=== PATIENT | male | born 1945 | race African-American/Black ===

== ENCOUNTER 2019-12-24 09:15 | Emergency (ER) | payer OTHER ==
[2019-12-24 11:44] LABS: ABSOLUTE LYMPHOCYTES (AUTO) 1.1 10^3/uL (0.5-4.7); ABSOLUTE MONOCYTES (AUTO) 0.7 10^3/uL (0.1-1.4); ABSOLUTE NEUT (AUTO) 4.4 10^3/uL (1.7-8.2); BASOPHILS % (AUTO) 0.6 % (0-2); EOSINOPHILS % (AUTO) 0.1 % (0-6); HEMATOCRIT 40.2 % (37.9-51.0); HEMOGLOBIN 13.3 g/dL (13.5-17.0); LYMPHOCYTES % (AUTO) 17.2 % (13-45); MEAN CORPUSCULAR HEMOGLOBIN 27.2 pg (27.0-33.4); MEAN CORPUSCULAR VOLUME 82 fl (80-97); MONOCYTES % (AUTO) 11.4 % (3-13); PLATELET COUNT 156 10^3/uL (150-450); RED BLOOD COUNT 4.87 10^6/uL (4.35-5.55); RED CELL DISTRIBUTION WIDTH 13.7 % (11.5-14.0); SEGMENTED NEUTROPHILS % (AUTO) 70.7 % (42-78); TOTAL CELLS COUNTED % (AUTO) 100 %; WHITE BLOOD COUNT 6.3 10^3/uL (4.0-10.5)
--- NOTE | 2019-12-24 11:50 | RADIOLOGY REPORT (SQ) ---
EXAM DESCRIPTION: CHEST SINGLE VIEW IMAGES COMPLETED DATE/TIME: 12/24/2019 11:22 am REASON FOR STUDY: cough sob COMPARISON: None. EXAM PARAMETERS: NUMBER OF VIEWS: One view. TECHNIQUE: Single frontal radiographic view of the chest acquired. RADIATION DOSE: NA LIMITATIONS: None. FINDINGS: LUNGS AND PLEURA: No opacities, masses or pneumothorax. No pleural effusion. MEDIASTINUM AND HILAR STRUCTURES: No masses. Contour normal. HEART AND VASCULAR STRUCTURES: Heart normal in size. Normal vasculature. BONES: No acute findings. HARDWARE: None in the chest. OTHER: No other significant finding. IMPRESSION: NO ACUTE RADIOGRAPHIC FINDING IN THE CHEST. TECHNICAL DOCUMENTATION: JOB ID: [id number] 2010 [employer]- All Rights Reserved Reading location - IP/workstation name: [email or web address]
[2019-12-24 12:03] LABS: ALBUMIN 4.6 g/dL (3.5-5.0); ALKALINE PHOSPHATASE 77 U/L (38-126); ANION GAP 12 (5-19); ASPARTATE AMINO TRANSFERASE 41 U/L (17-59); BILIRUBIN,DIRECT 0.1 mg/dL (0.0-0.4); BILIRUBIN,TOTAL 0.6 mg/dL (0.2-1.3); BLOOD UREA NITROGEN 21 mg/dL (7-20); CALCIUM 9.3 mg/dL (8.4-10.2); CARBON DIOXIDE 28 mmol/L (22-30); CHLORIDE 101 mmol/L (98-107); GLUCOSE 105 mg/dL (75-110); POTASSIUM 4.6 mmol/L (3.6-5.0); TOTAL PROTEIN 8.5 g/dL (6.3-8.2)
[2019-12-24 12:14] LABS: NT PRO BNP 139 pg/mL (<125)
[2019-12-24 12:16] LABS: TROPONIN I < 0.012 ng/mL
--- NOTE | 2019-12-24 13:26 | ER Document Report ---
ED General - General Chief Complaint: Shortness Of Breath Stated Complaint: COUGH,SHORTNESS OF BREATH Time Seen by Provider: 12/24/19 10:04 Mode of Arrival: Ambulatory Information source: Patient TRAVEL OUTSIDE OF THE [place] IN LAST 30 DAYS: No - HPI Notes: Patient presents with complaints of shortness of breath and cough. He states his cough is been mainly nonproductive. He states that shortness of breath is worse with exertion and better with rest. There is no significant radiation of the symptom. It is moderate in intensity and intermittent. He denies any pain. He states he is had no fever sweats or chills. He states he has had no known exposure to the COVID virus. He denies any history of COPD or CHF. He states he does take a blood pressure pill. - Related Data Allergies/Adverse Reactions: No Known Allergies Allergy (Unverified 05/19/14 20:56) Past Medical History - General Information source: Patient - Social History Smoking Status: Former Smoker Frequency of alcohol use: None Drug Abuse: None Family History: Reviewed & Not Pertinent - Past Medical History Cardiac Medical History: Reports: Hx Hypercholesterolemia, Hx Hypertension - Immunizations Hx Diphtheria, Pertussis, Tetanus Vaccination: Yes Review of Systems - Review of Systems Constitutional: denies: Chills, Fever Cardiovascular: denies: Chest pain, Palpitations Respiratory: Cough, Short of breath -: Yes All other systems reviewed and negative Physical Exam - Vital signs Vitals: Resp BP Pulse Ox 20 187/98 H 96 12/24/19 09:20 12/24/19 09:20 12/24/19 09:20 Interpretation: Hypertensive - Patient states he has not taken his blood pressure pill in 2 to 3 days. - General General appearance: Appears well, Alert - HEENT Head: Normocephalic, Atraumatic Eyes: Normal Pupils: PERRL - Respiratory Respiratory status: No respiratory distress Chest status: Nontender Breath sounds: Normal Chest palpation: Normal - Cardiovascular Rhythm: Regular Heart sounds: Normal auscultation Murmur: No - Abdominal Inspection: Normal Distension: No distension Bowel sounds: Normal Tenderness: Nontender Organomegaly: No organomegaly - Back Back: Normal, Nontender - Extremities General upper extremity: Normal inspection, Nontender, Normal color, Normal ROM, Normal temperature General lower extremity: Normal inspection, Nontender, Normal color, Normal ROM, Normal temperature, Normal weight bearing. No: Saw's sign - Neurological Neuro grossly intact: Yes Cognition: Normal Orientation: AAOx4 [place] Coma Scale Eye Opening: Spontaneous [place] Coma Scale Verbal: Oriented [place]esar Coma Scale Motor: Obeys Commands [place] Coma Scale Total: 15 Speech: Normal Motor strength normal: LUE, RUE, LLE, RLE Sensory: Normal - Psychological Associated symptoms: Normal affect, Normal mood - Skin Skin Temperature: Warm Skin Moisture: Dry Skin Color: Normal Course - Re-evaluation Re-evalutation: 12/24/19 13:22 Patient presents with shortness of breath. Chest x-ray is unremarkable. EKG shows no ischemic changes. His BNP is normal and there is no evidence of pulmonary edema or congestive heart failure. He has no significant elevated white blood cell count or fever. His vitals are stable. Patient refuses the COVID test. He states he does not go out of the house and has not been exposed to anybody with it. He does understand that there will could be a missed diagnosis of COVID by refusing this. He states he understands and if he gets sicker he will return. At this time with patient's history of some shortness of breath and a productive cough. I want to discharge the patient home on antibiotics and have him follow-up with his family physician. - Vital Signs Vital signs: Temp Pulse Resp BP Pulse Ox 97.8 F 80 19 187/103 H 99 12/24/19 09:23 12/24/19 09:23 12/24/19 12:01 12/24/19 12:00 12/24/19 12:01 - Laboratory Result Diagrams: 12/24/19 11:07 12/24/19 11:07 Laboratory results interpreted by me: 12/24/19 12/24/19 12/24/19 11:07 11:07 11:07 Hgb 13.3 L BUN 21 H NT-Pro-B Natriuret Pep 139 H Total Protein 8.5 H - Diagnostic Test Radiology reviewed: Image reviewed, Reports reviewed - EKG Interpretation by Me EKG shows normal: Sinus rhythm Rate: Normal - 77 Rhythm: NSR [place]/QRS: Left axis deviation. No: Right axis deviation Discharge - Discharge Clinical Impression: URI (upper respiratory infection) Qualifiers: URI type: unspecified URI Qualified Code(s): J06.9 - Acute upper respiratory infection, unspecified Condition: Stable Disposition: HOME, SELF-CARE Instructions: Upper Respiratory Illness ([facility]) Additional Instructions: Please call your family doctor as soon as possible to arrange follow up Prescriptions: Cefdinir 300 mg PO BID 7 Days #14 capsule
[2019-12-24 13:43] LABS: VENOUS BLOOD BASE EXCESS -0.7 mmol/L; VENOUS BLOOD HCO3 27.3 mmol/L (20-32); VENOUS BLOOD PCO2 59.2 mmHg (35-63); VENOUS BLOOD PH 7.28 (7.30-7.42)
[2019-12-24 13:47] VITALS: BP 187/98
--- NOTE | 2019-12-24 18:40 | EKG REPORT ---
SEVERITY:- OTHERWISE NORMAL ECG - SINUS RHYTHM LEFT AXIS DEVIATION : Confirmed by: Noman Morris 24-Dec-2019 18:40:07
== END 2019-12-24 14:05 | disposition home or self-care (01) ==
LOC: ER 09:15
DX: J06.9 Acute upper respiratory infection, unspecified (principal); R05 Cough; R06.02 Shortness of breath; I10 Essential (primary) hypertension; Z87.891 Personal history of nicotine dependence
CPT/HCPCS: 36415; 71045; 80053; 82803; 83605; 83880; 84484; 85025; 87040; 93005; 93010; 99285

== ENCOUNTER 2019-12-24 20:31 | Inpatient (IN) | payer OTHER ==
[2019-12-24] MEDS ORDERED: METHYLPREDNISOLONE INJ 40 MG/1 ML SDV IV ONE (21:00)
--- NOTE | 2019-12-24 21:05 | ER Document Report ---
Entered by JUAN PABLO CROW SCRIBE 12/24/192054 Acting as scribe for:SHAY ASH, DO ED General - General Stated Complaint: SHORTNESS OF BREATH Time Seen by Provider: 12/24/19 20:49 Mode of Arrival: Medic Information source: Patient Notes: This 74 year old male patient brought in by EMS from home presents to the ED today with complaints of shortness of breath and mild, nonproductive cough for the past x3 days. Patient was seen here earlier, diagnosed with a URI and prescribed Cefdinir. He refused a COVID test at that time, stating that he has not travelled recently or had any exposure to COVID. He states that he couldn't breathe when he got home, so he decided to come back. He notes that his work of breathing is better with O2. Denies fever. TRAVEL OUTSIDE OF THE [place] IN LAST 30 DAYS: No - Related Data Allergies/Adverse Reactions: No Known Allergies Allergy (Verified 12/24/19 20:54) Past Medical History - General Information source: [facility] Records - Social History Smoking Status: Unknown if Ever Smoked Smoking Education Provided: No Family History: Reviewed & Not Pertinent Patient has suicidal ideation: No Patient has homicidal ideation: No - Past Medical History Cardiac Medical History: Reports: Hx Hypercholesterolemia, Hx Hypertension - Immunizations Hx Diphtheria, Pertussis, Tetanus Vaccination: Yes Review of Systems - Review of Systems Constitutional: See HPI. denies: Fever EENT: No symptoms reported Cardiovascular: No symptoms reported Respiratory: See HPI, Cough, Short of breath Gastrointestinal: No symptoms reported Genitourinary: No symptoms reported Male Genitourinary: No symptoms reported Musculoskeletal: See HPI. denies: Muscle pain Skin: No symptoms reported Hematologic/Lymphatic: No symptoms reported Neurological/Psychological: No symptoms reported -: Yes All other systems reviewed and negative Physical Exam - Vital signs Vitals: Temp 99.9 F 12/24/19 20:31 - General General appearance: Alert, Other - Skinny and frail in appearance - HEENT Head: Normocephalic, Atraumatic Eyes: Normal Extraocular movements intact: Yes Pupils: PERRL - Respiratory Respiratory status: No respiratory distress Chest status: Nontender Breath sounds: Decreased air movement - bilaterally Chest palpation: Normal - Cardiovascular Rhythm: Regular Heart sounds: Normal auscultation Murmur: No Friction rub: No Gallop: None auscultated - Abdominal Inspection: Normal Distension: No distension Bowel sounds: Normal Tenderness: Nontender - Abdomen soft Organomegaly: No organomegaly - Back Back: Normal, Nontender - Extremities General upper extremity: Normal inspection General lower extremity: Normal inspection. No: Edema - Neurological Neuro grossly intact: Yes Cognition: Normal Orientation: AAOx4 [place] Coma Scale Eye Opening: Spontaneous [place] Coma Scale Verbal: Oriented [place] Coma Scale Motor: Obeys Commands Cesar Coma Scale Total: 15 Speech: Normal Motor strength normal: LUE, RUE, LLE, RLE Sensory: Normal - Psychological Associated symptoms: Normal affect, Normal mood - Skin Skin Temperature: Warm Skin Moisture: Dry Skin Color: Normal Course - Re-evaluation Re-evalutation: 12/24/19 23:26 MDM 74 year old male with CAP. Low grade fever here. CTA shows the pneumonia which was not visible on cxr. He has not tolerated the outpt attempt at cefdinir and I have spoken with Dr. Adkins and he has graciously agreed to see and evaluate for admission. - Vital Signs Vital signs: Temp Pulse Resp BP Pulse Ox 99.9 F 17 155/77 H 97 12/24/19 20:31 12/24/19 22:01 12/24/19 22:01 12/24/19 22:01 - Diagnostic Test Radiology reviewed: Image reviewed, Reports reviewed - EKG Interpretation by Me EKG shows normal: Sinus rhythm - NSR Left [place] [address] elevation or depression my interpretation Discharge - Discharge Clinical Impression: CAP (community acquired pneumonia) Qualifiers: Laterality: right Lung location: lower lobe of lung Qualified Code(s): J18.9 - Pneumonia, unspecified organism COPD (chronic obstructive pulmonary disease) Qualifiers: COPD type: unspecified COPD Qualified Code(s): J44.9 - Chronic obstructive pulmonary disease, unspecified Condition: Stable Disposition: ADMITTED OBSERVATION Admitting Provider: Jed (Hospitalist) Unit Admitted: Medical Floor I personally performed the services described in the documentation, reviewed and edited the documentation which was dictated to the scribe in my presence, and it accurately records my words and actions.
--- NOTE | 2019-12-24 22:28 | RADIOLOGY REPORT (SQ) ---
EXAM DESCRIPTION: CT CHEST ANGIOGRAPHY WITHOUT THEN WITH IV CONTRAST COMPLETED DATE/TME: 12/24/2019 20:58 CLINICAL HISTORY: 74 years Male sob COMPARISON: 12/24/2019 chest x-ray. TECHNIQUE: Contiguous axial images were obtained through the chest during the infusion of IV contrast. Reformatted images obtained. MIP reformatted images obtained. This exam was performed according to our department optimization program which includes automated exposure control, adjustment of the mA and/or kv according to patient size and/or use of iterative reconstruction technique. FINDINGS: Emphysematous change particularly toward the apices. There is consolidation in the right lower lobe consistent with pneumonia. Left lung appears clear. No pneumothorax. Elongated aorta without dissection or rupture. Scattered small lymph nodes in the malorie. Coronary calcification. Enhancement of the pulmonary arteries is suboptimal with Hounsfield units in the main pulmonary artery 117 HU. No definite embolus is noted. IMPRESSION: Suboptimal bolus of contrast for evaluation of pulmonary embolus. No evidence of embolus is noted No evidence of aortic dissection Infiltrate in the posterior aspect of the right lower lobe concerning for pneumonia or aspiration Emphysema
[2019-12-24] MEDS ORDERED: AMPICILLIN SOD/SULBACTAM 3 GM VIAL IV ONE (23:05)
[2019-12-25] MEDS ORDERED: GUAIFENESIN SYRP 200 MG/10 ML UDC PO PRN (00:57)
[2019-12-25] MEDS ORDERED: ACETAMINOPHEN 325 MG TABLET PO PRN (00:57)
[2019-12-25] MEDS ORDERED: LEVALBUTEROL HCL NEB 0.63 MG/3 ML AMPUL NEB PRN (00:57)
[2019-12-25] MEDS ORDERED: MELATONIN 5 MG TABLET PO PRN (01:01)
[2019-12-25] MEDS ORDERED: LORAZEPAM INJ 2 MG/1 ML VIAL IV PRN (01:01)
[2019-12-25] MEDS ORDERED: MAGNESIUM HYDROXIDE SUSP 30 ML UDCUP PO PRN (01:01)
[2019-12-25] MEDS ORDERED: MAG HYDROX/AL HYDROX/SIMETH SUSP 30 ML UDCUP PO PRN (01:01)
[2019-12-25] MEDS ORDERED: MORPHINE SULFATE 10 MG/ML INJ IV PRN ×4 (01:01→01:19)
[2019-12-25] MEDS ORDERED: HYDRALAZINE HCL INJ/PF 20 MG/1 ML SDV IV PRN (01:01)
[2019-12-25] MEDS ORDERED: NICOTINE 21 MG/24 HR PATCH.TD24 TD PRN (01:04)
[2019-12-25] MEDS ORDERED: METOPROLOL TARTRATE PF/INJ 5 MG/5 ML SDV IV PRN (01:04)
[2019-12-25] MEDS ORDERED: HEPARIN SOD (PORCINE) 5,000 UNIT/ML 1 ML VIAL SUBCUT SCH (06:00)
--- NOTE | 2019-12-25 06:48 | PDOC H&P ---
History of Present Illness Admission Date/PCP: 12/24/2019 23:29 [place] [facility] Patient complains of: Dyspnea History of Present Illness: SIENNA DOSS is a 74 year old male who represented to the emergency room 2 hours after his previous emergency room visit of the day, with a 3-day history of dyspnea. He admits progressively worsening dyspnea becoming severe after leaving the emergency room earlier today. His dyspnea is accompanied by orthopnea and is associated with a nonproductive cough. His dyspnea is worsened with exertion and somewhat improved with rest and supplemental oxygen. He denies other associated or accompanying signs and symptoms. He denies prior similar episodes. He has not identified any additional aggravating or ameliorating factors for his dyspnea. In the emergency room he was found to have a right lower lobe pneumonia on CT scan of the chest. IV antibiotics were initiated with Unasyn. COVID-19 testing was performed with results pending. Patient was subsequently admitted to the hospital for further evaluation and treatment. Past Medical History Cardiac Medical History: Reports: Hyperlipidema, Hypertension Denies: Atrial Fibrillation, Congestive Heart Failure, Coronary Artery Disease, DVT, Myocardial Infarction, Peripheral Vascular Disease, Pulmonary Embolism Pulmonary Medical History: Denies: Asthma, Chronic Obstructive Pulmonary Disease (COPD), Respiratory Failure EENT Medical History: Denies: Cataracts, Ears - Hearing aids Neurological Medical History: Denies: Hemorrhagic CVA, Ischemic CVA, Seizures Renal/ Medical History: Denies: Chronic Kidney Disease, Nephrolithiasis Malignancy Medical History: Reports: None GI Medical History: Denies: Cirrhosis, Hepatitis, Peptic Ulcer Disease Musculoskeltal Medical History: Denies: Arthritis, Gout Skin Medical History: Denies: Eczema, Psoriasis Psychiatric Medical History: Reports: Tobacco Dependency Denies: Alcohol Dependency, Substance Abuse Traumatic Medical History: Reports: None Hematology: Denies: Anemia, Bleeding Tendencies Infectious Medical History: Reports: None Past Surgical History Past Surgical History: Reports: None Social History Information Source: Patient Lives with: Family Smoking Status: Former Smoker Electronic Cigarette use?: No Frequency of Alcohol Use: None Hx Recreational Drug Use: No Drugs: None Hx Prescription Drug Abuse: No - Advance Directive Resuscitation Status: Full Code Surrogate healthcare decision maker:: Ashley Miguelina Family History Family History: Hypertension. denies: CAD, DM, Malignancy Parental Family History Reviewed: Yes Children Family History Reviewed: No Sibling(s) Family History Reviewed.: Yes Medication/Allergy Home Medications: Cephalexin Monohydrate [Keflex 500 mg Capsule] 500 mg PO QID #40 capsule 05/08/14 Sulfamethoxazole/Trimethoprim [Bactrim Ds Tablet] 2 each PO BID #40 tablet 05/08/14 Cefdinir 300 mg PO BID 7 Days #14 capsule 12/24/19 Allergies/Adverse Reactions: No Known Allergies Allergy (Verified 12/24/19 20:54) Review of Systems Constitutional: ABSENT: chills, fever(s) Eyes: ABSENT: visual disturbances, other - Eye pain Ears: ABSENT: hearing changes, other - Ear pain Nose, Mouth, and Throat: ABSENT: headache(s), sore throat Cardiovascular: PRESENT: as per HPI, dyspnea on exertion, orthropnea. ABSENT: chest pain, edema, palpitations Respiratory: PRESENT: as per HPI, cough, dyspnea. ABSENT: hemoptysis, sputum Gastrointestinal: ABSENT: abdominal pain, constipation, diarrhea, nausea, vomiting Genitourinary: ABSENT: dysuria, hematuria Musculoskeletal: ABSENT: back pain, joint swelling Integumentary: ABSENT: pruritus, rash Neurological: ABSENT: confusion, convulsions, focal weakness, memory loss, syncope Psychiatric: ABSENT: anxiety, depression Endocrine: ABSENT: cold intolerance, heat intolerance Hematologic/Lymphatic: ABSENT: easy bleeding, easy bruising Allergic/Immunologic: ABSENT: seasonal rhinorrhea Physical Exam Vital Signs: Temp Pulse Resp BP Pulse Ox 99.9 F 17 155/77 H 97 12/24/19 20:31 12/24/19 22:01 12/24/19 22:01 12/24/19 22:01 Intake & Output 12/22/19 12/23/19 12/24/19 23:59 23:59 23:59 Weight 63.503 kg General appearance: PRESENT: no acute distress, cooperative Head exam: PRESENT: atraumatic, normocephalic Eye exam: PRESENT: conjunctiva pink. ABSENT: conjunctival injection, scleral icterus Ear exam: PRESENT: normal external ear exam. ABSENT: bleeding, drainage Mouth exam: PRESENT: dry mucosa, neck supple Neck exam: ABSENT: thyromegaly, tracheal deviation Respiratory exam: PRESENT: prolonged expiratory phas - Mildly prolonged expi ratory phase throughout all hi, rales - Coarse rales at the right base, symmetrical Cardiovascular exam: PRESENT: RRR. ABSENT: clicks, gallop, rubs Pulses: PRESENT: normal radial pulses, normal dorsalis pedis pul Vascular exam: PRESENT: normal capillary refill. ABSENT: pallor GI/Abdominal exam: PRESENT: normal bowel sounds, soft. ABSENT: tenderness Rectal exam: PRESENT: deferred Extremities exam: ABSENT: joint swelling, pedal edema Musculoskeletal exam: ABSENT: deformity, dislocation Neurological exam: PRESENT: alert, oriented to person, oriented to place, oriented to time, oriented to situation, CN II-XII grossly intact. ABSENT: motor sensory deficit Psychiatric exam: PRESENT: appropriate affect, normal mood Skin exam: PRESENT: dry, intact, warm. ABSENT: jaundice, rash, urticaria Results Laboratory Results: 12/24/19 21:42 Troponin I 0.029 Impressions: Chest/Abdomen CTA 12/24/19 20:58 IMPRESSION: Suboptimal bolus of contrast for evaluation of pulmonary embolus. No evidence of embolus is noted No evidence of aortic dissection Infiltrate in the posterior aspect of the right lower lobe concerning for pneumonia or aspiration Emphysema Assessment and Plan - Diagnosis (1) Community acquired pneumonia of right lower lobe of lung Is this a current diagnosis for this admission?: Yes (2) COPD (chronic obstructive pulmonary disease) Qualifiers: COPD type: unspecified COPD Qualified Code(s): J44.9 - Chronic obstructive pulmonary disease, unspecified Is this a current diagnosis for this admission?: Yes (3) Hypertension Qualifiers: Hypertension type: essential hypertension Qualified Code(s): I10 - Essential (primary) hypertension Is this a current diagnosis for this admission?: Yes (4) Hyperlipidemia Qualifiers: Hyperlipidemia type: unspecified Qualified Code(s): E78.5 - Hyperlipidemia, unspecified Is this a current diagnosis for this admission?: Yes - Plan Summary Summary: Patient will be admitted to medical floor he will receive routine supportive and symptomatic cares. He will be treated with aggressive pulmonary toilet utilizing Xopenex, Atrovent, Pulmicort and Mucomyst. He will receive supplemental oxygen via the oxygen protocol in order to maintain an adequate O2 sat. He will receive IV antibiotics utilizing Rocephin and azithromycin. He will be a patient under investigation until his COVID-19 test results have returned. He will receive morphine sulfate 2 to 4 mg IV every 2 hours as needed for pain. He will receive Ativan 1 mg IV every 4 hours as needed for anxiety or restlessness. 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 He will be treated with a cardiac diet. - Time Time Spent with patient: 15-24 minutes Medications reviewed and adjusted accordingly: Yes Anticipated Discharge Disposition: Home with Home Health Anticipated Discharge Timeframe: Undetermined - Inpatient Certification Based on my medical assessment, after consideration of the patient's comorbidities, presenting symptoms, or acuity I expect that the services needed warrant INPATIENT care.: Yes I certify that my determination is in accordance with my understanding of Medicare's requirements for reasonable and necessary INPATIENT services [42 CFR 412.3e].: Yes Medical Necessity: Failure to Improve With Outpatient Therapy, Need Close Monitoring Due to Risk of Patient Decompensation, Need for Nebulizer Therapy and Monitoring of Response, Need for IV Antibiotics, Risk of Complication if Not Cared For in Hospital
[2019-12-25] MEDS ORDERED: LEVALBUTEROL HCL NEB 1.25 MG/3 ML AMPUL NEB SCH (08:00)
[2019-12-25] MEDS ORDERED: ACETYLCYSTEINE 20% SOLN 800 MG/4 ML VIAL.NEB NEB SCH (08:00)
[2019-12-25] MEDS ORDERED: BUDESONIDE NEB 0.5 MG/2 ML AMPUL NEB SCH (08:00)
[2019-12-25] MEDS ORDERED: IPRATROPIUM BROMIDE 0.02% NEB 0.5 MG/2.5 ML AMPUL NEB SCH (08:00)
--- NOTE | 2019-12-25 08:53 | PDOC DISCHARGE SUMMARY ---
Impression - Admit/DC Date/PCP Admission Date/Primary Care Provider: 12/24/19 23:40 Discharge Date: 12/25/19 - Assessment Summary: Patient will be admitted to medical floor he will receive routine supportive and symptomatic cares. He will be treated with aggressive pulmonary toilet utilizing Xopenex, Atrovent, Pulmicort and Mucomyst. He will receive supplemental oxygen via the oxygen protocol in order to maintain an adequate O2 sat. He will receive IV antibiotics utilizing Rocephin and azithromycin. He will be a patient under investigation until his COVID-19 test results have returned. He will receive morphine sulfate 2 to 4 mg IV every 2 hours as needed for pain. He will receive Ativan 1 mg IV every 4 hours as needed for anxiety or restlessness. He will be continued on his usual home medications for his chronic medical illnesses as soon as his medication list can be verified and reconciled. He will be treated with a cardiac diet. - Additional Information Resuscitation Status: Full Code Discharge Diet: Cardiac Discharge Activity: Balance Activity w/Rest, Slowly Increase Activity [facility]: [facility] [NO [facility]] - Prescriptions: Fluticasone Propion/Salmeterol [Advair HFA 115-21 mcg Inhaler] 2 puff IH BID #1 mdi Azithromycin [Zithromax 250 mg Tablet] 250 mg PO ASDIR PRN #6 tablet PRN Reason: Home Medications: Cephalexin Monohydrate [Keflex 500 mg Capsule] 500 mg PO QID #40 capsule 05/08/14 Sulfamethoxazole/Trimethoprim [Bactrim Ds Tablet] 2 each PO BID #40 tablet 05/08/14 Cefdinir 300 mg PO BID 7 Days #14 capsule 12/24/19 Acetaminophen [Tylenol 325 mg Tablet] 650 mg PO Q4HP PRN tablet 12/25/19 Azithromycin [Zithromax 250 mg Tablet] 250 mg PO ASDIR PRN #6 tablet 12/25/19 Fluticasone Propion/Salmeterol [Advair HFA 115-21 mcg Inhaler] 2 puff IH BID #1 mdi 12/25/19 Guaifenesin [Robitussin Syrup 200 mg/10 ml Ud Cup] 200 mg PO QIDP PRN udc 12/25/19 Nicotine [Nicoderm 21 mg/24 Hr Transderm Patch] 1 each TD DAILYP PRN patch.td24 12/25/19 History of Present Illiness History of Present Illness: SIENNA DOSS is a 74 year old male who represented to the emergency room 2 hours after his previous emergency room visit of the day, with a 3-day history of dyspnea. He admits progressively worsening dyspnea becoming severe after leaving the emergency room earlier today. His dyspnea is accompanied by orthopnea and is associated with a nonproductive cough. His dyspnea is worsened with exertion and somewhat improved with rest and supplemental oxygen. He denies other associated or accompanying signs and symptoms. He denies prior similar episodes. He has not identified any additional aggravating or ameliorating factors for his dyspnea. In the emergency room he was found to have a right lower lobe pneumonia on CT scan of the chest. IV antibiotics were initiated with Unasyn. COVID-19 testing was performed with results pending. Patient was subsequently admitted to the hospital for further evaluation and treatment. Hospital Course Hospital Course: Unremarkable hospital course. The patient reports feeling much better this morning. He is agreeable to return home. Physical Exam Vital Signs: Temp Pulse Resp BP Pulse Ox 99.9 F 21 H 152/86 H 96 12/24/19 20:31 12/25/19 06:01 12/25/19 06:00 12/25/19 06:01 Intake & Output 12/24/19 12/25/19 12/26/19 06:59 06:59 06:59 Weight 63.503 kg General appearance: PRESENT: no acute distress, cooperative, well-developed Head exam: PRESENT: atraumatic, normocephalic Ear exam: PRESENT: normal external ear exam. ABSENT: bleeding, drainage Respiratory exam: PRESENT: clear to auscultation gillian, symmetrical, unlabored. ABSENT: rales, rhonchi, tachypnea, wheezes Cardiovascular exam: PRESENT: RRR, +S1, +S2 GI/Abdominal exam: PRESENT: normal bowel sounds, soft. ABSENT: distended, guarding, tenderness Rectal exam: PRESENT: deferred, tenderness Neurological exam: PRESENT: alert, awake, oriented to person, oriented to place, oriented to time, oriented to situation. ABSENT: altered, CN II-XII grossly intact - Significant vision loss Psychiatric exam: PRESENT: appropriate affect. ABSENT: agitated, anxious Focused psych exam: ABSENT: delusional, paranoid, restlessness Skin exam: PRESENT: dry, normal color, warm. ABSENT: rash Results Laboratory Results: Troponin I 0.029 ng/mL 12/24/19 21:42 12/24/19 21:42 Troponin I 0.029 Impressions: Chest/Abdomen CTA 12/24/19 20:58 IMPRESSION: Suboptimal bolus of contrast for evaluation of pulmonary embolus. No evidence of embolus is noted No evidence of aortic dissection Infiltrate in the posterior aspect of the right lower lobe concerning for pneumonia or aspiration Emphysema Plan Health Concerns: Community-acquired pneumonia. Plan of Treatment: The patient will complete antibiotic therapy as an outpatient. He is oxygenating well on room air. I have also prescribed an inhaler to use during his recovery and possibly thereafter. This will be determined by his follow-up at the [facility]. The health department will contact him with results of his COVID testing Goals: Resolution of infection Time Spent: Greater than 30 Minutes Stroke Is this a Stroke Patient?: No Acute Heart Failure - Is this a Heart Failure Patient?: No
[2019-12-25 09:14] VITALS: BP 145/84
[2019-12-25] MEDS ORDERED: FAMOTIDINE 20 MG TABLET PO SCH (10:00)
[2019-12-25] MEDS ORDERED: AZITHROMYCIN 500 MG in DEXTROSE 5%-WATER 250 ML IV SCH (10:00)
[2019-12-25] MEDS ORDERED: DEXAMETHASONE SOD PHOSPHATE INJ 4 MG/1 ML VIAL IV SCH (10:00)
[2019-12-25] MEDS ORDERED: CEFTRIAXONE 1 GM/D5W RTU 1 GM/50 ML RTUPB IV SCH (10:00)
--- NOTE | 2019-12-25 10:11 | EKG REPORT ---
SEVERITY:- OTHERWISE NORMAL ECG - SINUS RHYTHM LEFT AXIS DEVIATION : Confirmed by: Noman Morris 25-Dec-2019 10:11:13
== END 2019-12-25 08:43 | disposition home or self-care (01) | DRG 177 ==
LOC: ER 20:31 → EH 23:40 → OBSVTOIN 12-25 00:57
PROVIDERS: ADMIT Emergency Medicine; ATTEND Hospitalist
DX: U07.1 COVID-19 (principal); J18.9 Pneumonia, unspecified organism; J44.0 Chronic obstructive pulmonary disease with (acute) lower respiratory infection; E78.5 Hyperlipidemia, unspecified; I10 Essential (primary) hypertension; Z87.891 Personal history of nicotine dependence; Z82.49 Family history of ischemic heart disease and other diseases of the circulatory system
CPT/HCPCS: 36415; 36600; 71275; 84484; 87040; 87635; 93005; 93010; 99285; C9803; J0295; J1644; J3490

== ENCOUNTER 2020-03-29 20:21 | Emergency (ER) | payer OTHER ==
[2020-03-29 23:00] LABS: ABSOLUTE BASOPHILS # (AUTO) 0.1 10^3/uL (0.0-0.2); ABSOLUTE LYMPHOCYTES (AUTO) 1.5 10^3/uL (0.5-4.7); ABSOLUTE MONOCYTES (AUTO) 0.4 10^3/uL (0.1-1.4); ABSOLUTE NEUT (AUTO) 5.9 10^3/uL (1.7-8.2); BASOPHILS % (AUTO) 0.7 % (0-2); EOSINOPHILS % (AUTO) 0.5 % (0-6); HEMATOCRIT 39.5 % (37.9-51.0); HEMOGLOBIN 13.1 g/dL (13.5-17.0); LYMPHOCYTES % (AUTO) 18.7 % (13-45); MEAN CORPUSCULAR HEMOGLOBIN 27.5 pg (27.0-33.4); MEAN CORPUSCULAR HGB CONC 33.2 g/dL (32.0-36.0); MEAN CORPUSCULAR VOLUME 83 fl (80-97); MONOCYTES % (AUTO) 5.3 % (3-13); PLATELET COUNT 206 10^3/uL (150-450); RED BLOOD COUNT 4.77 10^6/uL (4.35-5.55); RED CELL DISTRIBUTION WIDTH 14.3 % (11.5-14.0); SEGMENTED NEUTROPHILS % (AUTO) 74.8 % (42-78); TOTAL CELLS COUNTED % (AUTO) 100 %; WHITE BLOOD COUNT 7.8 10^3/uL (4.0-10.5)
[2020-03-29 23:05] LABS: ALBUMIN 5.2 g/dL (3.5-5.0); ALKALINE PHOSPHATASE 95 U/L (38-126); ANION GAP 15 (5-19); ASPARTATE AMINO TRANSFERASE 38 U/L (17-59); BILIRUBIN,DIRECT 0.3 mg/dL (0.0-0.4); BILIRUBIN,TOTAL 0.7 mg/dL (0.2-1.3); BLOOD UREA NITROGEN 19 mg/dL (7-20); CALCIUM 10.1 mg/dL (8.4-10.2); CARBON DIOXIDE 29 mmol/L (22-30); CHLORIDE 97 mmol/L (98-107); GLUCOSE 131 mg/dL (75-110); POTASSIUM 4.3 mmol/L (3.6-5.0); TOTAL PROTEIN 9.5 g/dL (6.3-8.2)
[2020-03-29 23:13] LABS: APPEARANCE,URINE CLEAR; BILIRUBIN,URINE NEGATIVE (NEGATIVE); COLOR,URINE STRAW; GLUCOSE, URINE NEGATIVE (NEGATIVE); KETONES,URINE NEGATIVE (NEGATIVE); LEUKOCYTE ESTERASE,URINE TRACE (NEGATIVE); NITRITE,URINE NEGATIVE (NEGATIVE); PROTEIN,URINE 100 mg/dL (NEGATIVE); URINE SPECIFIC GRAVITY 1.013; UROBILINOGEN,URINE NEGATIVE mg/dL (<2.0)
[2020-03-29 23:17] LABS: CREATINE KINASE MB 2.31 ng/mL (<4.55); NT PRO BNP 167 pg/mL (<125)
[2020-03-29 23:19] LABS: TROPONIN I < 0.012 ng/mL
[2020-03-29] MEDS ORDERED: METHYLPREDNISOLONE INJ 125 MG/2 ML SDV IV ONE (23:22)
[2020-03-29] MEDS ORDERED: IPRATROPIUM/ALBUTEROL 0.5-2.5 MG/3 ML AMPUL NEB ONE (23:22)
--- NOTE | 2020-03-29 23:22 | RADIOLOGY REPORT (SQ) ---
EXAM DESCRIPTION: CHEST SINGLE VIEW CLINICAL HISTORY: 75 years Male, sob COMPARISON: Single view of the chest 12/24/2019 FINDINGS: Lungs: Lungs are hyperinflated with flattening of the hemidiaphragms and increased AP diameter. Overall there is diffuse lucency of the lung parenchyma consistent with emphysema. No pneumothorax. No focal consolidation. Mediastinum: Cardiac and mediastinal silhouette are stable Bones: Osseous structures are normal. IMPRESSION: Hyperinflation with diffuse lucency of the lungs consistent with emphysema. No acute process.
--- NOTE | 2020-03-29 23:28 | ER Document Report ---
ED General - General Chief Complaint: Shortness Of Breath Stated Complaint: DIFFICULTY BREATHING Time Seen by Provider: 03/29/20 23:07 Primary Care Provider: [facility] [Primary Care Provider] - Follow up as needed TRAVEL OUTSIDE OF THE U[place] IN LAST 30 DAYS: No - HPI Notes: Patient is a 75-year-old male who presents to the emergency department for evaluation of difficulty breathing. He states that this is actually been going on for several years but has been worse over the last day. He denies any pain. No fevers or chills. No nausea or vomiting. No anosmia. He is not coughing. He denies any chest tightness. He states he has been eating and drinking normally, peeing and moving his bowels normally. He just became more short of breath while walking today. He states that he was not really doing anything strenuous. Denies any pain of any sort. He has a history of high blood pressure glaucoma, has been taking his medications as prescribed. - Related Data Allergies/Adverse Reactions: No Known Allergies Allergy (Verified 12/24/19 20:54) Home Medications: Antihypertensive, glaucoma medications Past Medical History - General Information source: Patient - Social History Smoking Status: Former Smoker - [id number] smoker, quit in the Chew tobacco use (# tins/day): Yes Frequency of alcohol use: None Drug Abuse: None Family History: Hypertension. denies: CAD, DM, Malignancy - Past Medical History Cardiac Medical History: Reports: Hx Hypercholesterolemia, Hx Hypertension Denies: Hx Atrial Fibrillation, Hx Congestive Heart Failure, Hx Coronary Artery Disease, Hx DVT, Hx Heart Attack, Hx Peripheral Vascular Disease, Hx Pulmonary Embolism Pulmonary Medical History: Denies: Hx Asthma, Hx COPD, Hx Respiratory Failure EENT Medical History: Reports: Eyes - Glaucoma, retinal artery occlusion Neurological Medical History: Denies: Hx Seizures GI Medical History: Denies: Hx Cirrhosis, Hx Hepatitis Musculoskeletal Medical History: Denies Hx Arthritis, Denies Hx Gout Skin Medical History: Denies Hx Eczema, Denies Hx Psoriasis Infectious Medical History: Denies: Hx Hepatitis Surgical Hx: Negative - Immunizations Hx Diphtheria, Pertussis, Tetanus Vaccination: Yes Review of Systems - Review of Systems Constitutional: No symptoms reported EENT: No symptoms reported Cardiovascular: No symptoms reported Respiratory: See HPI Gastrointestinal: No symptoms reported Genitourinary: No symptoms reported Musculoskeletal: No symptoms reported Skin: No symptoms reported Neurological/Psychological: No symptoms reported -: Yes All other systems reviewed and negative Physical Exam - Vital signs Vitals: Resp 35 H 03/29/20 20:38 - Notes Notes: There is a very pleasant 75-year-old male who appears her stated age, mild distress. He is mildly tachypneic. Vital signs reviewed, please refer to chart. Head is normocephalic, atraumatic. Pupils equal round, reactive to light. Neck is supple without meningismus. Heart is regular rate and rhythm. Lungs reveal significantly diminished breath sounds. Abdomen is soft, nontender, normoactive bowel sounds throughout. Extremities without cyanosis, clubbing. Posterior calves are nontender. Peripheral pulses are equal. Skin is warm and dry, dyshidrotic. Patient is awake, alert, neurological exam is nonfocal. Course - Re-evaluation Re-evalutation: 03/29/20 23:27 Patient presents to the emergency department for evaluation. He has shortness of breath, has an SPO2 of 90% on room air and is found to be tachypneic. He is improving on oxygen. He has no known history of COPD but does have a history of smoking. He states that shortness of breath of been going on for some time. His lungs show poor air movement at this time. We will treat with steroids, albuterol. His chest x-ray appears to show hyperinflation to my eye, awaiting radiology read. ABG is ordered as well. He is currently stable, we will continue to monitor. 03/30/20 00:43 Patient feeling significantly improved. ABG was unable to be obtained by nursing. I did attempt once with ultrasound. The patient had a muscle spasm and jerked, I aborted the procedure. At that point he was breathing 20 times a minute. He is oxygenating well. He feels significantly improved and would like to go home. I do not see any indication for the ABG at this time. The patient's x-ray is consistent with emphysema. His physical findings are consistent with emphysema. I explained to him that he would need pulmonary function testing, but that was likely his diagnosis. I will send him home with steroids and albuterol inhaler. [facility]. He voiced understanding. We also talked about his elevated blood pressure here. I suspect that that was in part secondary to his difficulty breathing as well as anxiety, and he agrees. We did discuss, however, that uncontrolled blood pressure leads to significant medical comorbidities, and this would need to be addressed as well. He voiced understanding and will be discharged. He is to return to the ED with worsening. - Vital Signs Vital signs: Temp Pulse Resp BP Pulse Ox 97.7 F 30 H 178/99 H 100 03/29/20 21:49 03/30/20 00:22 03/30/20 00:22 03/30/20 00:27 - Laboratory Result Diagrams: 03/29/20 22:05 03/29/20 22:05 Laboratory results interpreted by me: 03/29/20 03/29/20 03/29/20 22:05 22:05 22:05 Hgb 13.1 L RDW 14.3 H Chloride 97 L Glucose 131 H NT-Pro-B Natriuret Pep 167 H Total Protein 9.5 H Albumin 5.2 H Urine Protein Urine Blood Ur Leukocyte Esterase 03/29/20 22:10 Hgb RDW Chloride Glucose NT-Pro-B Natriuret Pep Total Protein Albumin Urine Protein 100 H Urine Blood SMALL H Ur Leukocyte Esterase TRACE H - Diagnostic Test Radiology reviewed: Image reviewed, Reports reviewed Radiology results interpreted by me: 03/30/20 00:44 Chest X-Ray 03/29/20 22:46 IMPRESSION: Hyperinflation with diffuse lucency of the lungs consistent with emphysema. No acute process. Procedures - Additional Procedures ABG Time performed: 00:44 Additional Procedures: ABG Notes: 03/30/20 00:47 Silvano test performed. Left radial artery was visualized with ultrasound. I did attempt to cannulate the artery. The artery was cannulated, but the patient did move, I did lose blood flow. Patient stated he was feeling better so procedure was aborted. No other complications. Discharge - Discharge Clinical Impression: COPD (chronic obstructive pulmonary disease) Qualifiers: COPD type: emphysema Emphysema type: unspecified Qualified Code(s): J43.9 - Emphysema, unspecified Condition: Stable Disposition: HOME, SELF-CARE Instructions: Chronic Obstructive Lung Disease ([facility]) Additional Instructions: Your findings today are most consistent with emphysema. [facility] Please take the steroids and use the albuterol inhaler as directed. Also, your blood pressure is elevated today. Please follow-up with your primary care provider in regards to this. Return to the emergency department with worsening or new concerning symptoms of any sort. Prescriptions: Albuterol Sulfate [Albuterol Sulfate Hfa] 6.7 gm IH Q4HP PRN #1 [id number].[id number] PRN Reason: Prednisone [Deltasone 20 mg Tablet] See Protocol PO DAILY 5 Days #20 tablet Forms: Elevated Blood Pressure [facility] [[facility]] - Follow up as needed
[2020-03-30 01:09] VITALS: BP 210/102
--- NOTE | 2020-03-30 07:31 | EKG REPORT ---
SEVERITY:- ABNORMAL ECG - SINUS TACHYCARDIA LAD, CONSIDER LEFT ANTERIOR FASCICULAR BLOCK : Confirmed by: Roddy Hobbs MD 30-Mar-2020 07:31:23
== END 2020-03-30 01:19 | disposition home or self-care (01) ==
LOC: ER 20:21
DX: J43.9 Emphysema, unspecified (principal); R06.02 Shortness of breath; R06.00 Dyspnea, unspecified; E78.00 Pure hypercholesterolemia, unspecified; I10 Essential (primary) hypertension
CPT/HCPCS: 93005; 94640; 99285; 96374; 36415; 82553; 85025; 80053; 81001; 84484; 83880; 71045; 93010; J2930

== ENCOUNTER 2020-03-30 08:33 | Emergency (ER) | payer OTHER ==
[2020-03-30] MEDS ORDERED: LIDOCAINE 2% URO-JET 5 ML KIT MM ONE (10:10)
--- NOTE | 2020-03-30 10:19 | ER Document Report ---
ED General - General Chief Complaint: Urinary Retention Stated Complaint: urinary retention Time Seen by Provider: 03/30/20 10:08 Primary Care Provider: RODDY LAZARO [Primary Care Provider] - Follow up as needed TRAVEL OUTSIDE OF THE U.S. IN LAST 30 DAYS: No - HPI Notes: 75-year-old male with past medical history for enlarged prostate and hypertension to the emergency department with complaints of urinary retention that began yesterday. He states he last urinated yesterday but since and has not been able to urinate. He states he did not have any pain or see any blood with his urination yesterday. He denies any fevers or chills. He denies any nausea or vomiting. He states that his lower abdomen is very uncomfortable and distended. He has never had a problem like this before. He sees Dr. Eliud PEREYRA for urology. Does not have a history of prostate cancer. He states that he has been trying to drink tea to hydrate himself and promote himself to urinate but has not worked. - Related Data Allergies/Adverse Reactions: No Known Allergies Allergy (Verified 03/30/20 09:49) Home Medications: no change in meds since visit last night Past Medical History - General Information source: Patient - Social History Smoking Status: Former Smoker Chew tobacco use (# tins/day): No Frequency of alcohol use: None Drug Abuse: None Family History: Hypertension. denies: CAD, DM, Malignancy Patient has homicidal ideation: No - Past Medical History Cardiac Medical History: Reports: Hx Hypercholesterolemia, Hx Hypertension Denies: Hx Atrial Fibrillation, Hx Congestive Heart Failure, Hx Coronary Artery Disease, Hx DVT, Hx Heart Attack, Hx Peripheral Vascular Disease, Hx Pulmonary Embolism Pulmonary Medical History: Denies: Hx Asthma, Hx COPD, Hx Respiratory Failure Neurological Medical History: Denies: Hx Seizures GI Medical History: Denies: Hx Cirrhosis, Hx Hepatitis Musculoskeletal Medical History: Denies Hx Arthritis, Denies Hx Gout Skin Medical History: Denies Hx Eczema, Denies Hx Psoriasis Infectious Medical History: Denies: Hx Hepatitis - Immunizations Hx Diphtheria, Pertussis, Tetanus Vaccination: Yes Review of Systems - Review of Systems Constitutional: denies: Chills, Fever EENT: No symptoms reported Cardiovascular: denies: Chest pain, Palpitations, Heart racing, Orthopnea, Dyspnea, Syncope, Dizziness, Lightheaded Respiratory: denies: Cough, Short of breath Gastrointestinal: Abdominal pain. denies: Diarrhea, Nausea, Vomiting Genitourinary: Retention Musculoskeletal: No symptoms reported Skin: No symptoms reported Hematologic/Lymphatic: No symptoms reported Neurological/Psychological: No symptoms reported -: Yes All other systems reviewed and negative Physical Exam - Vital signs Vitals: Temp Pulse Resp BP Pulse Ox 98.0 F 116 H 16 184/90 H 96 03/30/20 08:38 03/30/20 08:38 03/30/20 08:38 03/30/20 08:38 03/30/20 08:38 Interpretation: Normal - General General appearance: Appears well, Alert - HEENT Head: Normocephalic, Atraumatic Eyes: Normal Pupils: PERRL Ears: Normal External canal: Normal Tympanic membrane: Normal Sinus: Normal Nasal: Normal Mouth/Lips: Normal Pharynx: Normal Neck: Normal, Supple. No: Lymphadenopathy - Respiratory Respiratory status: No respiratory distress Chest status: Nontender. No: Accessory muscle use Breath sounds: Normal. No: Rales, Rhonchi, Wheezing Chest palpation: Normal - Cardiovascular Rhythm: Regular Heart sounds: Normal auscultation Murmur: No - Abdominal Inspection: Normal Distension: Other - Mild distention in the suprapubic abdomen with tenderness to palpation over the suprapubic abdomen. Bowel sounds: Normal Tenderness: Tender - Tenderness over the suprapubic abdomen. No: McBurney's point, Spencer's sign, Guarding, Rebound Organomegaly: No organomegaly - Back Back: Normal, Nontender. No: CVA tenderness - Neurological Neuro grossly intact: Yes Cognition: Normal Orientation: AAOx4 Cesar Coma Scale Eye Opening: Spontaneous Cesar Coma Scale Verbal: Oriented [place] Coma Scale Motor: Obeys Commands Cesar Coma Scale Total: 15 Speech: Normal Cranial nerves: Normal Cerebellar coordination: Normal Motor strength normal: LUE, RUE, LLE, RLE Additional motor exam normals: Equal bologna lacer Sensory: Normal - Psychological Associated symptoms: Normal affect, Normal mood - Skin Skin Temperature: Warm Skin Moisture: Dry Skin Color: Normal Course - Re-evaluation Re-evalutation: 03/30/20 11:53 Progress: Rounded on patient he is feeling much better after Pete inserted. Almost 600 cc was drained from the bladder. A little bit of nitrates and white blood cells in his urinalysis. We will culture it and start him on a 3-day course of Cipro. 1 month follow-up with urology. He is concerned that he may not be able to get in with Dr. Kline through the [place] so we will give him a urologist here in [place]. Patient agrees with the plan. Encouraged to return if worse. - Vital Signs Vital signs: Temp Pulse Resp BP Pulse Ox 98.0 F 116 H 16 184/90 H 96 03/30/20 08:38 03/30/20 08:38 03/30/20 08:38 03/30/20 08:38 03/30/20 08:38 03/30/20 12:15 Temp Pulse Resp BP Pulse Ox 98.4 F 95 17 139/73 H 98 03/30/20 12:12 03/30/20 12:12 03/30/20 12:12 03/30/20 12:12 03/30/20 12:12 Intake & Output 03/29/20 03/30/20 03/31/20 06:59 06:59 06:59 Weight 54.6 kg Weight/Height Weight 54.6 kg Height 5 ft 10 in - Laboratory Laboratory results interpreted by me: 03/30/20 11:05 Urine Protein 100 H Urine Blood MODERATE H Urine Nitrite (Reflex) POSITIVE H Urine Urobilinogen 2.0 H Discharge - Discharge Clinical Impression: Urinary retention UTI (urinary tract infection) Qualifiers: Urinary tract infection type: acute cystitis Hematuria presence: without hematuria Qualified Code(s): N30.00 - Acute cystitis without hematuria Condition: Stable Disposition: HOME, SELF-CARE Instructions: Urinary Retention ([facility]), Pete Catheter Care ([facility]), Urinary Tract Infection ([facility]) Additional Instructions: Please follow-up outpatient with urology; call today to make a follow up appointment. He will need to use a Pete until you are seen. You want to be seen by Saturday. Take antibiotics as prescribed. Return if any worsening symptoms. [facility], Urology [address] [place] [address] Prescriptions: Ciprofloxacin HCl [Cipro 500 mg Tablet] 500 mg PO BID #6 tablet [facility] [[facility]] - Follow up in 1 week
[2020-03-30 11:27] LABS: APPEARANCE,URINE CLEAR; BILIRUBIN,URINE NEGATIVE (NEGATIVE); COLOR,URINE AMBER; GLUCOSE, URINE NEGATIVE (NEGATIVE); KETONES,URINE NEGATIVE (NEGATIVE); PROTEIN,URINE 100 mg/dL (NEGATIVE); URINE SPECIFIC GRAVITY 1.016
[2020-03-30 12:13] VITALS: BP 139/73
== END 2020-03-30 12:46 | disposition home or self-care (01) ==
LOC: ER 08:33
DX: N30.00 Acute cystitis without hematuria (principal); R33.9 Retention of urine, unspecified; N40.0 Benign prostatic hyperplasia without lower urinary tract symptoms; R10.9 Unspecified abdominal pain; I10 Essential (primary) hypertension; Z87.891 Personal history of nicotine dependence
CPT/HCPCS: 99283; 51702; 36415; 87086; 81001; J3490

== ENCOUNTER 2020-04-11 16:59 | Emergency (ER) | payer OTHER, MEDICARE ==
[2020-04-11] MEDS ORDERED: PREDNISONE 20 MG TABLET PO ONE (17:34)
--- NOTE | 2020-04-11 17:35 | ER Document Report ---
ED Medical Screen (RME) - General Chief Complaint: Shortness Of Breath Stated Complaint: SHORT OF BREATH Time Seen by Provider: 04/11/20 17:32 Primary Care Provider: RODDY LAZARO [Primary Care Provider] - Follow up as needed Notes: HPI: 75-year-old male with COPD history who is a poor historian presenting for shortness of breath today. Short of breath with exertion not at rest currently. No fever. Reports chronic cough. PHYSICAL EXAMINATION: Lung sounds are clear to auscultation. Not significantly tachycardic. Does not become dyspneic with speaking I have greeted and performed a rapid initial assessment of this patient. A comprehensive ED assessment and evaluation of the patient, analysis of test results and completion of medical decision making process will be conducted by an additional ED providers. TRAVEL OUTSIDE OF THE [place] IN LAST 30 DAYS: No - Related Data Allergies/Adverse Reactions: No Known Allergies Allergy (Verified 03/30/20 09:49) Past Medical History - Past Medical History Cardiac Medical History: Reports: Hx Hypercholesterolemia, Hx Hypertension Denies: Hx Atrial Fibrillation, Hx Congestive Heart Failure, Hx Coronary Artery Disease, Hx DVT, Hx Heart Attack, Hx Peripheral Vascular Disease, Hx Pulmonary Embolism Pulmonary Medical History: Denies: Hx Asthma, Hx COPD, Hx Respiratory Failure Neurological Medical History: Denies: Hx Seizures GI Medical History: Denies: Hx Cirrhosis, Hx Hepatitis Musculoskeltal Medical History: Denies Hx Arthritis, Denies Hx Gout Skin Medical History: Denies Hx Eczema, Denies Hx Psoriasis Infectious Medical History: Denies: Hx Hepatitis - Immunizations Hx Diphtheria, Pertussis, Tetanus Vaccination: Yes Doctor's Discharge - Discharge Referrals: TEJAS,RODDY [Primary Care Provider] - Follow up as needed
[2020-04-11 17:40] VITALS: BP 101/65
--- NOTE | 2020-04-11 19:12 | RADIOLOGY REPORT (SQ) ---
EXAM DESCRIPTION: CHEST SINGLE VIEW IMAGES COMPLETED DATE/TIME: 04/11/2020 6:59 pm REASON FOR STUDY: sob COMPARISON: 03/29/2020 EXAM PARAMETERS: NUMBER OF VIEWS: One view. TECHNIQUE: Single frontal radiographic view of the chest acquired. RADIATION DOSE: NA LIMITATIONS: None. FINDINGS: LUNGS AND PLEURA: The lungs are hyperexpanded. There is no infiltrate, effusion, or mass. There is no pneumothorax. MEDIASTINUM AND HILAR STRUCTURES: No masses. Contour normal. HEART AND VASCULAR STRUCTURES: Heart normal in size. Normal vasculature. BONES: No acute findings. HARDWARE: None in the chest. OTHER: No other significant finding. IMPRESSION: Chronic lung changes with no acute cardiopulmonary finding. TECHNICAL DOCUMENTATION: JOB ID: [id number] [employer]- All Rights Reserved Reading location - IP/workstation name: [email or web address]
[2020-04-11] MEDS ORDERED: NORMAL SALINE 1000 ML 1,000 ML IV PRN (20:02)
[2020-04-11] MEDS ORDERED: CLOPIDOGREL BISULFATE 75 MG TABLET PO ONE (20:02)
[2020-04-11] MEDS ORDERED: ASPIRIN 81 MG TABLET, CHEWABLE PO ONE (20:02)
--- NOTE | 2020-04-11 20:19 | ER Document Report ---
ED General - General Chief Complaint: Shortness Of Breath Stated Complaint: SHORT OF BREATH Time Seen by Provider: 04/11/20 17:32 Primary Care Provider: [facility] [Primary Care Provider] - Follow up as needed TRAVEL OUTSIDE OF THE [place] IN LAST 30 DAYS: No - HPI Notes: Chief complaint: Chest tightness History of present illness: 75-year-old male with prior history of hypertension and no other known cardiac disease presents with intermittent chest tightness this afternoon. He is basically pain-free at this time. He has had some intermittent shortness of breath with exertion. He denies vomiting. He denies diaphoresis. He is a former smoker. Patient had documented Covid infection in December of this year and says he is intermittently had some shortness of breath since then. He does not use any home oxygen. He does not take any regular breathing treatments. Patient denies any known history of diabetes. He does have a history of hyperlipidemia. He is followed at the [facility]. - Related Data Allergies/Adverse Reactions: No Known Allergies Allergy (Verified 03/30/20 09:49) Past Medical History - General Information source: Patient, Relative, [facility] Records - Social History Smoking Status: Former Smoker Smoking Education Provided: No Frequency of alcohol use: None Drug Abuse: None Lives with: Family Family History: Hypertension. denies: CAD, DM, Malignancy - Past Medical History Cardiac Medical History: Reports: Hx Hypercholesterolemia, Hx Hypertension Denies: Hx Atrial Fibrillation, Hx Congestive Heart Failure, Hx Coronary Artery Disease, Hx DVT, Hx Heart Attack, Hx Peripheral Vascular Disease, Hx Pu lmonary Embolism Pulmonary Medical History: Denies: Hx Asthma, Hx COPD, Hx Respiratory Failure Neurological Medical History: Denies: Hx Seizures GI Medical History: Denies: Hx Cirrhosis, Hx Hepatitis Musculoskeletal Medical History: Denies Hx Arthritis, Denies Hx Gout Skin Medical History: Denies Hx Eczema, Denies Hx Psoriasis Infectious Medical History: Denies: Hx Hepatitis Surgical Hx: Negative - Immunizations Hx Diphtheria, Pertussis, Tetanus Vaccination: Yes Review of Systems - Review of Systems Notes: Constitutional: Negative for fever. HENT: Negative for sore throat. Eyes: Negative for visual changes. Cardiovascular: As per HPI . Respiratory: As per HPI. Gastrointestinal: Negative for abdominal pain, vomiting or diarrhea. Genitourinary: Negative for dysuria. Musculoskeletal: Negative for back pain. Skin: Negative for rash. Neurological: Negative for headaches, weakness or numbness. 10 point ROS negative except as marked above and in HPI. Physical Exam - Vital signs Vitals: Temp Pulse Resp BP Pulse Ox 95 F L 87 16 101/65 92 04/11/20 17:32 04/11/20 17:32 04/11/20 17:32 04/11/20 17:32 04/11/20 17:32 Repeat blood pressure 140/80 by me - Notes Notes: GENERAL: Slender elderly male appearing somewhat anxious but otherwise in no acute distress . SKIN: Good turgor no rashes. HEAD: Normocephalic atraumatic. EYES: PERRLA. EOMI. Conjunctivae and sclerae clear. EARS: CANALS AND TMS CLEAR. NOSE: CLEAR. MOUTH: Moist mucosa. Good dentition. No stridor or edema. No drooling. NECK: Supple. No masses or thyromegaly. No adenopathy. Carotids 2+ without bruits. No JVD. BACK: Symmetrical without tenderness. CHEST: Respirations unlabored. Breath sounds clear and symmetrical. HEART: Regular rhythm. No murmur gallop or rub. ABDOMEN: Soft nontender without masses, organomegaly or rebound. Bowel sounds normally active. No bruits. GENITALIA: Deferred. EXTREMITIES: No edema. No calf tenderness. Cap refill less than 1.5 seconds. Dorsalis pedis and posterior tibial pulses 3+ and symmetrical. NEUROLOGICAL: GCS 15. Alert and oriented x3. Normal gait. Fluent speech. Cranial nerves II through XII intact. Sensorimotor and cerebellar normal. Normal tone. PSYCHIATRIC: Anxious affect. Course - Re-evaluation Re-evalutation: 04/11/20 20:20 EKG shows prominent new ST elevations V1 through V5. This is compared to an earlier tracing from about 3 weeks ago and these changes are all new. Findings are consistent with acute anterior AK. Patient is started on oral aspirin and Plavix and will also receive subcu Lovenox and IV nitroglycerin. I spoken with Dr. Jc the on-call pr internship at [facility] and he is excepted the patient for immediate transfer. 04/11/20 20:21 Findings, clinical impression and plan of treatment have been discussed with patient/family. Understanding of current findings and recommendations has been acknowledged by them and there is agreement regarding disposition and follow-up. - Vital Signs Vital signs: Temp Pulse Resp BP Pulse Ox 95 F L 87 16 101/65 92 04/11/20 17:32 04/11/20 17:32 04/11/20 17:32 04/11/20 17:32 04/11/20 17:32 - Diagnostic Test Radiology reviewed: Image reviewed, Reports reviewed Radiology results interpreted by me: 04/11/20 20:21 Chest X-Ray 04/11/20 17:33 IMPRESSION: Chronic lung changes with no acute cardiopulmonary finding. - EKG Interpretation by Me Additional EKG results interpreted by me: 04/11/20 20:25 Twelve-lead EKG reviewed by me contemporaneously: 1943 Indication for study: Chest pain Rhythm: Normal sinus Rate: 95 Intervals: QT prolongation with QTC of 508 ms QRS axis: -[address]/T wave changes: Prominent ST elevations V1 through V5 Comparison with prior tracing: New prominent anterior ST elevations Interpretation: Acute anterior STEMI Critical Care Note - Critical Care Note Total time excluding time spent on procedures (mins): 65 - Acute STEMI Discharge - Discharge Clinical Impression: Acute ST elevation myocardial infarction (STEMI) Qualifiers: Involved coronary artery: unspecified coronary artery Qualified Code(s): I21.3 - ST elevation (STEMI) myocardial infarction of unspecified site Condition: Critical Disposition: [facility] Referrals: [facility] [Primary Care Provider] - Follow up as needed
[2020-04-11] MEDS ORDERED: ENOXAPARIN SODIUM INJ 60 MG/0.6 ML DISP.SYRIN SUBCUT ONE (20:21)
[2020-04-11 20:32] LABS: ABSOLUTE LYMPHOCYTES (AUTO) 1.5 10^3/uL (0.5-4.7); ABSOLUTE MONOCYTES (AUTO) 0.8 10^3/uL (0.1-1.4); ABSOLUTE NEUT (AUTO) 7.4 10^3/uL (1.7-8.2); BASOPHILS % (AUTO) 0.5 % (0-2); EOSINOPHILS % (AUTO) 0.2 % (0-6); HEMATOCRIT 45.6 % (37.9-51.0); HEMOGLOBIN 14.8 g/dL (13.5-17.0); LYMPHOCYTES % (AUTO) 15.1 % (13-45); MEAN CORPUSCULAR HEMOGLOBIN 27.5 pg (27.0-33.4); MEAN CORPUSCULAR HGB CONC 32.6 g/dL (32.0-36.0); MEAN CORPUSCULAR VOLUME 84 fl (80-97); MONOCYTES % (AUTO) 8.3 % (3-13); PLATELET COUNT 239 10^3/uL (150-450); SEGMENTED NEUTROPHILS % (AUTO) 75.9 % (42-78); TOTAL CELLS COUNTED % (AUTO) 100 %; WHITE BLOOD COUNT 9.7 10^3/uL (4.0-10.5)
[2020-04-11 20:44] LABS: INTERNATIONAL RATION (INR) 0.97; PROTHROMBIN TIME 13.1 SEC (11.4-15.4)
[2020-04-11 21:11] LABS: ALBUMIN 4.3 g/dL (3.5-5.0); ALKALINE PHOSPHATASE 89 U/L (38-126); ANION GAP 8 (5-19); ASPARTATE AMINO TRANSFERASE 661 U/L (17-59); BILIRUBIN,DIRECT 0.1 mg/dL (0.0-0.4); BLOOD UREA NITROGEN 35 mg/dL (7-20); CALCIUM 9.7 mg/dL (8.4-10.2); CARBON DIOXIDE 31 mmol/L (22-30); CHLORIDE 98 mmol/L (98-107); GLUCOSE 137 mg/dL (75-110); POTASSIUM 4.3 mmol/L (3.6-5.0); TOTAL PROTEIN 8.1 g/dL (6.3-8.2)
--- NOTE | 2020-04-12 18:01 | EKG REPORT ---
SEVERITY:- ABNORMAL ECG - SINUS RHYTHM RIGHT ATRIAL ABNORMALITY LEFT ANTERIOR FASCICULAR BLOCK ANTERIOR INFARCT, RECENT PROLONGED QT INTERVAL : Confirmed by: Noman Morris 12-Apr-2020 18:00:14
== END 2020-04-11 20:36 | disposition short-term general hospital (02) ==
LOC: ER 16:59
DX: I21.3 ST elevation (STEMI) myocardial infarction of unspecified site (principal); R06.02 Shortness of breath; I10 Essential (primary) hypertension; Z87.891 Personal history of nicotine dependence
CPT/HCPCS: 93005; 99285; 96372; 36415; 85025; 85610; 85730; 80053; 84484; 83880; 71045; 93010; J7030; J1650